=== PATIENT | female | born 1945 | race Two or more races ===

== ENCOUNTER 2017-09-20 07:16 | Emergency (ER) | payer MEDICARE, MEDICAID ==
[~2017-09-20] VITALS: Ht 167.6 cm; Wt 71.7 kg
[2017-09-20 07:35] VITALS: BP 149/69
[2017-09-20] MEDS ORDERED: KETOROLAC TROMETH 30 MG/ML 1ML VIAL IM ONE ×2 (08:00)
== END 2017-09-20 08:31 | disposition home or self-care (01) ==
LOC: ER 07:22
DX: M25.512 Pain in left shoulder (principal); I10 Essential (primary) hypertension
CPT/HCPCS: 73030; 93005; 96372; 99284; J1885

== ENCOUNTER → 2024-01-26 | Outpatient (CLI) | payer MEDICARE, MEDICAID ==
[2024-01-26 11:08] LABS: Basophils # (auto) 0 10 ^3/uL (0-0.2); Basophils % (auto) 0.8 % (0.0-2.0); Eosinophils # (auto) 0.1 10 ^3/uL (0-0.8); Eosinophils % (auto) 1.1 % (0.0-7.0); Hematocrit 36.4 % (36.0-46.0); Hemoglobin 12.6 g/dL (12.2-16.2); Lymphocytes # (auto) 1.9 10 ^3/uL (0.4-5.4); Lymphocytes % (auto) 36.5 % (10.0-50.0); Mean Corpuscular Hgb Conc. 34.5 g/dL (32.0-36.0); Mean Corpuscular Volume 92.7 fL (80.0-100.0); Monocytes # (auto) 0.4 10 ^3/uL (0-1.3); Monocytes % (auto) 7.2 % (0.0-12.0); Neutrophils # (auto) 2.8 10 ^3/uL (1.6-8.6); Neutrophils % (auto) 54.4 % (37.0-80.0); Nucleated Red Blood Cells % 0.1 %; Platelet Count (auto) 219 10^3/uL (140-450); Red Blood Cells 3.93 10^6/uL (4.0-5.20); White Blood Cell 5.2 10^3/uL (4.4-10.8)
[2024-01-26 11:41] LABS: Alanine Aminotransferase 21 U/L (7-40); Alkaline Phosphatase 95 U/L (46-116); Anion Gap 9 (5-15); BUN/Creatinine Ratio 11.1 (10.0-20.0); Blood Urea Nitrogen 10 mg/dL (9-23); Calcium 9.9 mg/dL (8.7-10.4); Carbon Dioxide 26 mmol/L (20-31); Chloride 107 mmol/L (98-107); Glucose 89 mg/dL (74-106); LDL Cholesterol 140 mg/dL (< 100); Potassium 4.3 mmol/L (3.5-5.1); Sodium 142 mmol/L (136-145); Triglycerides 203 mg/dL (< 150)
[2024-01-26 11:42] LABS: Albumin 4.6 g/dL (3.2-4.8); Aspartate Aminotransferase 17 U/L (13-40); Bilirubin, Total 0.6 mg/dL (0.2-1.0); Cholesterol 226 mg/dL (< 200); HDL Cholesterol 56 mg/dL (40-59); Total Protein 7.8 g/dL (5.7-8.2)
[2024-01-26 13:53] LABS: Free T3 2.62 pg/mL (2.3-4.2)
[2024-01-26 13:54] LABS: Free T4 (Free Thyroxine) 0.92 ng/dL (0.89-1.76)
== END | disposition home or self-care (01) ==
LOC: LAB 10:45
PROVIDERS: ATTEND Internal Medicine
DX: I10 Essential (primary) hypertension (principal)
CPT/HCPCS: 36415; 80053; 80061; 84439; 84443; 84481; 85025

== ENCOUNTER → 2024-02-13 | Outpatient (CLI) | payer MEDICARE, MEDICAID | END | disposition home or self-care (01) | LOC: XYW 12:23 | PROVIDERS: ATTEND Internal Medicine | DX: I51.7 Cardiomegaly (principal); R06.00 Dyspnea, unspecified; R06.02 Shortness of breath | CPT/HCPCS: 93306 ==

== ENCOUNTER → 2024-02-22 | Outpatient (CLI) | payer MEDICARE, MEDICAID ==
--- NOTE | 2024-02-22 13:54 | DVHSR ---
APPROVED REPORT Exam: Nuclear Stress Test BMI: 0 Stress Test Details HR Max Heart Rate (APMHR): 141.947366 bpm Target HR (85% APMHR): 119.871041 bpm BP ECG Stress ECG Conclusion Resting images shows near homogeneous uptake of radioactive tracer apart from reduced uptake in the a nterior anteroseptal wall at mid to apical segment. Stress images shows homogeneous uptake of radioactive tracer throughout the myocardium with the impro vement of the anteroseptal wall defect. Severely reduced left ventricular ejection fraction at 37%. Impression: Negative stress test for ischemia, severely reduced left ventricular systolic function, moderate risk study NM EXAM: Myocardial Perfusion REST/STRESS Imaging Protocol: Rest Tc-99m/Stress Tc-99m 1 day Resting Data Rest SPECT myocardial perfusion imaging was performed in supine position 60 minutes following the int ravenous injection of 7.9 mCi of Tc-99m Sestamibi. Time of rest injection: 0845 Time of rest imagin Administration Route: IV Administration Site: Left Hand Pharmacologic Stress Pharmacologic stress test was performed by injecting Adenosine mg IV push followed by the intravenou s injection of 23.5 mCi of Tc-99m Sestamibi. Time of stress injection: 1000 Time of stress imagin Administration Route: IV Administration Site: Left Hand Gated Stress SPECT was performed 45 minutes after stress injection. The images were gated to evaluate regional wall motion and calculate left ventricular ejection fracti on. Nuclear Conclusion ECG Findings: negative for ischemia Clinical Findings: negative for ischemia Nuclear Findings: negative for ischemia Exercise Capacity: not assessed Left Ventricular Function: abnormal Risk Study: moderate Resting images shows near homogeneous uptake of radioactive tracer apart from reduced uptake in the a nterior anteroseptal wall at mid to apical segment. Stress images shows homogeneous uptake of radioactive tracer throughout the myocardium with the impro vement of the anteroseptal wall defect. Severely reduced left ventricular ejection fraction at 37%. Impression: Negative stress test for ischemia, severely reduced left ventricular systolic function, moderate risk study
== END | disposition home or self-care (01) ==
LOC: XYW 09:03
PROVIDERS: ATTEND Internal Medicine
DX: I44.7 Left bundle-branch block, unspecified (principal); R06.02 Shortness of breath; R06.09 Other forms of dyspnea
CPT/HCPCS: 78452; 93017; A9500; J0153